=== PATIENT | female | born 1980 | race Caucasian/White ===

== ENCOUNTER 2023-06-26 19:48 | Emergency (ER) | payer MEDICAID ==
[~2023-06-26] VITALS: Ht 172.7 cm; Wt 93.0 kg
[2023-06-26 20:11] VITALS: BP 165/108; PULSE 86; RESP 16; O2SAT 99
[2023-06-26] MEDS ORDERED: CEPH250C PO (22:13)
[2023-06-26] MEDS ORDERED: BACDST PO (22:13)
[2023-06-26] MEDS ORDERED: NAPR-1334 PO (22:13)
[2023-06-27] MEDS: IBUPROFEN 800 MG TAB PO ONE (01:35)
[2023-06-27] MEDS: TETANUS-DIPTH-ACEL PERTUSSIS 0.5ML SYR Tdap IM ONE (01:35)
== END 2023-06-27 01:38 | disposition home or self-care (01) ==
LOC: ER 19:48
DX: L03.114 Cellulitis of left upper limb (principal); S50.362A Insect bite (nonvenomous) of left elbow, initial encounter; I10 Essential (primary) hypertension; F17.210 Nicotine dependence, cigarettes, uncomplicated; F12.10 Cannabis abuse, uncomplicated; W57.XXXA Bitten or stung by nonvenomous insect and other nonvenomous arthropods, initial encounter; Y93.9 Activity, unspecified; Y92.89 Other specified places as the place of occurrence of the external cause; Y99.8 Other external cause status
CPT/HCPCS: 73200